=== PATIENT | female | born 1950 | race Caucasian/White ===

== ENCOUNTER 2018-04-30 12:25 | Outpatient (CLI) | payer MEDICARE, OTHER ==
--- NOTE | 2018-04-30 13:41 | RAD ---
2 VIEWS CHEST: Date: 04/30/18 PROVIDED CLINICAL HISTORY: Preop. FINDINGS: Comparison with 09/18/11. Cardiac and mediastinal silhouette is within normal limits. No focal consolidation, pleural fluid, or pneumothorax apparent. IMPRESSION: No evidence for acute cardiopulmonary process. POS: OFF
== END 2018-04-30 12:26 | disposition home or self-care (01) ==
LOC: MADRAD 12:25
PROVIDERS: ATTEND Orthopaedic Surgery Sports Medicine
DX: Z01.818 Encounter for other preprocedural examination (principal)
CPT/HCPCS: 71046